=== PATIENT | female | born 1980 | race African-American/Black ===

== ENCOUNTER → 2024-03-09 15:57 | Outpatient (BNVA) | payer OTHER, SELFPAY | PROVIDERS: Visit Provider Physician Assistant | DX: K12.0 Recurrent oral aphthae (principal) | CPT/HCPCS: 99202 ==

== ENCOUNTER → 2024-03-09 15:57 | Outpatient (AMB) | payer OTHER, SELFPAY ==
--- NOTE | 2024-03-09 16:09 | AM.OFFWIN_ITS ---
Intake Vital Signs 03/09/24 16:11 Height 5 ft 6 in Weight 182 lb BMI 29.4 BP 130/84 Blood Pressure Location Rt brachial Position Sitting Pulse 90 Pulse Source Pulse Oximeter Pulse Oximetry (%) 98 Oxygen Delivery Method Room Air Intake Visit Reasons: CHANGE MANAGER Mouth pain Intake Note: Patient here for mouth pain that has been present for about 3 days. Patient Tobacco Use Status: Never used Tobacco Allergies No Known Allergies Allergy (Verified 03/09/24 16:11) Do you need a note to return to daycare/school/sports/work: No HPI HPI Comments History of Present Illness Details Patient is a 43-year-old female complaining of mouth pain that is been going on for 3 days and getting worse. She states she just moved to this area if in [place] it does not have a dentist. She states that she has pain on her gums it hurts to push on the area. She states she started using a new tooth paste because she could not afford her regular tooth paste which is very expensive and she thinks that is what triggered all of this. [facility] Social History Patient Tobacco Use Status: Never used Tobacco Review of Systems Const All systems reviewed & are unremarkable except as noted in HPI and below Physical Exam Vital Signs: Last Vital Signs Pulse 90 03/09/24 16:11 BP 130/84 03/09/24 16:11 Pulse Ox 98 03/09/24 16:11 Oxygen Delivery Method Room Air 03/09/24 16:11 BMI result Body Mass Index 29.4 Const General: cooperative, healthy appearing, comfortable, no acute distress and well developed Orientation/consciousness: patient oriented x3 Limitations: no limitations HEENT Head: Yes normal to inspection Ears: hearing grossly normal bilaterally General nose exam: Normal external nose present Teeth and gingiva: gingiva abnormal (small white ulcers on gums on upper bilateral side) Neck Neck: Yes normal visual inspection and Yes supple Neuro General: patient oriented x3 Assessment & Plan Assessment & Plan (1) 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 Also sent viscous lidocaine to patient's pharmacy for pain relief, recommended if pain persists she should follow up with a dentist. Plan See above Medications: New lidocaine HCl 2% (Lidocaine Viscous) swish and spit 1 appl mucous membrane TID PRN 100 mL 0RF pain Coding Level of Care Code New Pt Level 3 (13002) Diagnoses Aphthous stomatitis K12.0
[2024-03-09 16:11] VITALS: BP 130/84; PULSE 90; O2SAT 98; BMI 29.4
== END ==
PROVIDERS: Visit Provider Physician Assistant
DX: K12.0 Recurrent oral aphthae (principal)